=== PATIENT | male | born 1990 | race Caucasian/White ===

== ENCOUNTER 2019-08-24 19:22 | Emergency (ER) | payer BC ==
[~2019-08-24] VITALS: Ht 172.7 cm; Wt 60.0 kg
[2019-08-24] MEDS ORDERED: tetanus & diphtheria toxoid (Td) vaccine 0.5ml IMVAC ONE (19:45)
[2019-08-24] MEDS ORDERED: TETanus/Pertussis (Acell)/Diphther VAC/PF (Tdap-Adult) 0.5ml syringe IMVAC ONE (19:50)
[2019-08-24 20:25] VITALS: BP 132/87
== END 2019-08-24 20:31 | disposition home or self-care (01) ==
LOC: ER 19:23
DX: S61.211A Laceration without foreign body of left index finger without damage to nail, initial encounter (principal); W45.8XXA Other foreign body or object entering through skin, initial encounter; Y93.89 Activity, other specified; Y92.89 Other specified places as the place of occurrence of the external cause; Y99.8 Other external cause status
CPT/HCPCS: 90471; 90715; 99283

== ENCOUNTER 2020-06-11 04:24 | Emergency (ER) | payer BC ==
[~2020-06-11] VITALS: Ht 172.7 cm; Wt 80.0 kg
--- NOTE | 2020-06-11 04:30 | NUR ---
describes as a tearimg chest pain prior pnemo thorax, this time feels worse
--- NOTE | 2020-06-11 04:33 | NUR ---
anxious, repsotioned for comfort with EKG
[2020-06-11] MEDS ORDERED: ketorolac trometh inj. 60 MG/2 ML VIAL IM ONE (04:55)
[2020-06-11] MEDS ORDERED: HYDR-3965 PO (05:00)
[2020-06-11 05:08] VITALS: BP 101/111
== END 2020-06-11 05:10 | disposition home or self-care (01) ==
LOC: ER 04:24
DX: R07.81 Pleurodynia (principal); R06.02 Shortness of breath; R07.89 Other chest pain; F12.90 Cannabis use, unspecified, uncomplicated
CPT/HCPCS: 71045; 93005; 96372; 99283; J1885